=== PATIENT | female | born 1990 | race Two or more races ===

== ENCOUNTER → 2025-03-04 | Outpatient (CLI) | payer OTHER, SELFPAY ==
--- NOTE | 2025-03-04 13:45 | MRI_ITS ---
PROCEDURE: SPINE LUMBAR (ROUTINE) 03/04/2025 REASON FOR EXAM: SPONDYLOSIS OF LUMBOSACRAL REGION W/O MYELOPATHY/RADICULOPATHY TECHNIQUE: Multiplanar and multisequence images were obtained without IV contrast administration. COMPARISON: none FINDINGS: Straightened lumbar lordotic curve denoting myospasm. The examined vertebrae bodies and posterior neural arches show no fracture or dislocation with preserve vertebral bodies height. Multilevel tiny marginal lipping and Modio II of the lumbar vertebral end plates . Reduced bright T2 WI signal of L5-S1 disc denoting its desiccation. T12-L1: There is no focal disc pathology, central canal stenosis or neural foraminal stenosis. L1-L2: There is no focal disc pathology, central canal stenosis or neural foraminal stenosis. L2-L3: There is no focal disc pathology, central canal stenosis or neural foraminal stenosis. L3-L4: There is no focal disc pathology, central canal stenosis or neural foraminal stenosis. L4-L5: There is no focal disc pathology, central canal stenosis or neural foraminal stenosis. L5-S1: a 2 mm diffuse disc bulge inclined to the left side with central and right paracentral focal posterior disc protrusion indenting the theca and encroaching upon both neural exit foramina inducing mild right and moderate left exiting nerve roots compression. The lower thoracic spinal cord, conus medullaris, and cauda equina nerve roots are unremarkable. Multilevel small vertebral bodies hemangiomata. No marrow infiltrative lesions. Paravertebral soft tissue is unremarkable. No developmental canal stenosis. Mild orthostatic edema of the back. MRI/Spine Lumbar (Routine) IMPRESSION: Straightened lumbar lordotic curve denoting myospasm. No vertebral fracture or dislocation. L5-S1: a 2 mm diffuse disc bulge inclined to the left side with central and rig ht paracentral focal posterior disc protrusion inducing mild right and moderate left exiting nerve roots compression. Reading [facility]
== END | disposition home or self-care (01) ==
LOC: OPMRI 13:17
PROVIDERS: PCP Family Medicine
DX: M47.817 Spondylosis without myelopathy or radiculopathy, lumbosacral region (principal)
CPT/HCPCS: 72148